=== PATIENT | male | born 2000 | race Caucasian/White ===

== ENCOUNTER 2024-08-23 21:43 | Emergency (ER) | payer BC, SELFPAY ==
[2024-08-23 21:52] VITALS: BP 140/65; PULSE 97; RESP 16; TEMP 36.6; O2SAT 100
--- NOTE | 2024-08-23 22:03 | ED.GENADUL_ITS ---
Discharge Plan Disposition Patient Disposition: Home Condition: Stable Discharge Details Clinical Impression: Cellulitis of forearm, right Primary Care Provider: Cely Mendosa ED Provider: Flori Fortune Home Meds and New Rx's Prescriptions: New cephalexin 500 mg capsule 500 mg PO QID 7 Days Qty: 28 0RF Discharge Instructions Instructions: Cellulitis (Skin Infection), Adult ED Additional Instructions: You were seen in the emergency department today for evaluation of a skin infection on your arm, concerning for cellulitis. In our department had a full physical examination performed, and we have started you on antibiotics. Please take this antibiotic 4 times per day until it is gone, even if you start to feel better. Please follow-up with your primary care provider for reassessment especially if you notice that this does not seem to be getting better after the first several days. If you develop fever or chills, nausea or vomiting, or change or worsening of the redness you should return to the emergency department for reevaluation. Please follow-up with your primary care provider in the next few days to discuss this visit and any symptoms that change, worsen, or persist. Thank you for allowing us to be part of your care. HPI General Mode of arrival: ambulatory . Date/Time Provider Initiated Documentation: 08/23/24 21:46 . Limitations to Documentation: no limitations . Information obtained by: patient and old records reviewed . HPI Narrative: HPI: This is a 23-year-old male patient, previously healthy presenting for evaluation of an arm infection. The patient reports that he first noticed some redness and swelling on Friday, has been trying to manage his symptoms at home with rest, hydrocortisone cream, and picking/popping at the area. He reports that he has noted worsening and spreading of the redness and some discomfort, prompting him to seek care. The patient cannot recall any injury or trauma to the area, states that he has not been on antibiotics recently and has no personal history of skin infections. He states that he is not experiencing any additional complaints and is otherwise in his normal state of health without fever. Exam: Gen: Awake and alert, in no apparent distress HEENT: Non-icteric sclera Neck: Supple Lungs: No apparent respiratory distress, normal respiratory effort. CV: Appears well perfused, heart with regular rate and rhythm, strong distal pulses Abdomen: Non-distended MSK: Moves 4 extremities without apparent limitation in ROM Skin: Visualized skin without rashes, cyanosis. The patient does have an approximately 4 cm circular area of erythema, induration, and swelling with a punctate area in the center that has been picked off. I do not palpate any fluctuance. Neuro: Normal Gait, no obvious focal deficits or facial asymmetry. Speaks in full, clear sentences. Psych: Appropriate for situation. MDM: This is a 23-year-old male patient presenting for evaluation of an arm infection. Differential includes but is not limited to cellulitis, certainly considered abscess the patient has no fluctuance to suggest same. The duration of symptoms and the patient is reassuring hemodynamic examination reassures me against a necrotizing skin and soft tissue infection. No mechanism of injury to suggest foreign body. No hemodynamic instability or fever to suggest sepsis or bacteremia. ED Course: I provided the patient with a course of Keflex for nonpurulent cellulitis, as well as a referral to establish with primary care. At this time, the patient has had a full medical evaluation and is safe for discharge to home. They are hemodynamically stable, ambulatory, and tolerating PO. They are understanding of the follow-up plan and return precautions. They left our facility without incident. Flori Fortune MD Related Data Home Medications ?Medication ?Instructions ?Recorded ?Confirmed cephalexin 500 mg capsule 500 mg PO QID 7 days #28 caps 08/23/24 Previous Rx's ?Medication ?Instructions ?Recorded cephalexin 500 mg capsule 500 mg PO QID 7 days #28 caps 08/23/24 Allergies Allergy/AdvReac Type Severity Reaction Status Date / Time No Known Allergies Allergy Unverified 08/23/24 21:58 General Stated Complaint: Cellulitis OMAR: 4 Course Vital Signs Vital signs: Vital Signs Temperature 36.6 C 08/23/24 21:52 Pulse 97 H 08/23/24 21:52 Respiratory Rate 16 08/23/24 21:52 Blood Pressure 140/65 08/23/24 21:52 Pulse Oximetry 100 08/23/24 21:52 Temperature 36.6 C 08/23/24 21:52 Temperature Source Tympanic 08/23/24 21:52 Pulse 97 H 08/23/24 21:52 Respiratory Rate 16 08/23/24 21:52 Blood Pressure 140/65 08/23/24 21:52 Blood Pressure Position Sitting 08/23/24 21:52 Pulse Oximetry 100 08/23/24 21:52 Oxygen Delivery Method Room Air 08/23/24 21:52 Oxygen Flow Rate 0 08/23/24 21:52 Pain Level 5 08/23/24 21:52 Medical Decision Making Quality:SDOH Health Related Social Needs: No Data to Display PFSH All Active Problems (Updated 08/23/24 @ 22:04 by Flori Fortune MD) Cellulitis of forearm, right (Acute) Encounter for well child visit at 17 years of age (Acute) nml exam growth charts show decreasing wt and bmi % - (mom has made healthy nutrition changes at home) HPV #2, Hep A #2 and Flu vaccines given today will need HPV #3 in 4 months aaag provided depression screen negative Medical History (Updated 08/23/24 @ 22:04 by Flori Fortune MD) Constipation Anxiety Concussion Surgical History oral surgery Family History Mother Female fertility problems Hypothyroid Mental disorder depression/anxiety Asthma Father No problems noted. Brother No problems noted. Social History Smoking/Tobacco Use Status: Never Smoking risk assessment performed?: Yes (grandmother smokes outside) Drug use: Never
[2024-08-23] MEDS: Cephalexin 500 MG CAP, 4 CAPS/BTL PO (22:09)
== END 2024-08-23 22:10 | disposition home or self-care (01) ==
LOC: ER 22:16
PROVIDERS: Emergency Provider Emergency Medicine; PCP Nurse Practitioner Family
DX: L03.113 Cellulitis of right upper limb (principal)
CPT/HCPCS: 99283